=== PATIENT | female | born 1955 | race Caucasian/White ===

== ENCOUNTER 2018-03-16 13:36 | Emergency (ER) | payer BC, OTHER ==
[~2018-03-16] VITALS: Ht 160 cm; Wt 59.9 kg
[2018-03-16] MEDS ORDERED: ORPHENADRINE 60 MG/2 ML (NORFLEX) AMP IM ONE (15:15)
--- NOTE | 2018-03-16 15:22 | ED Lower Extremity ---
General Chief Complaint: Lower Extremity Stated Complaint: FELL,R LEG PAIN Nursing Triage Note: PT PRESENTS TO ER WITH COMPLAINT OF RIGHT LEG PAIN AFTER SLIPPING IN BATHROOM, STATES SHE DID THE SPLITS. STATES IT HURTS TO STRAIGHTEN HER RIGHT LEG. PAIN IN BACK UPPER THIGH. Nursing Sepsis Screen: No Definite Risk Source: patient Exam Limitations: no limitations History of Present Illness Date Seen by Provider: Mar 16, 2018 Time Seen by Provider: 15:17 Initial Comments Patient is a 62-year-old female who presents to the emergency room with complaints of right leg pain after slipping on a freshly mopped floor. She states that the slip caused her to do the splits coming down on her right hip and upper thigh. She states that over the course of her wait in the emergency room the pain has become much better and she denies any need for pain medication. She states that it just feels like she is having muscle spasms in the right upper thigh. Onset: just prior to arrival Pain/Injury Location: right hip Method of Injury: fell Modifying Factors: Worse With Movement; Improves With Rest Allergies and Home Medications Allergies Coded Allergies: sulfamethoxazole (Verified Allergy, Unknown, 03/16/18) trimethoprim (Verified Allergy, Unknown, 03/16/18) Home Medications Cyclobenzaprine HCl 10 Mg Tablet, 10 MG PO TID PRN for muscle spasms Prescribed by: ADITI RENTERIA on 03/16/18 1543 Patient Home Medication List Home Medication List Reviewed: Yes Constitutional: see HPI; No chills, No diaphoresis Gastrointestinal: abdominal pain Musculoskeletal: see HPI, joint pain (right hip), muscle cramps All Other Systems Reviewed Negative Unless Noted: Yes Past Qwrskal-Jgrkop-Nctvzj Hx Past Med/Social Hx: Reviewed Nursing Past Med/Soc Hx Patient Social History Alcohol Use: Denies Use Recreational Drug Use: No Smoking Status: Never a Smoker Recent Foreign Travel: No Contact w/Someone Who Travel: No Recent Infectious Disease Expo: No Recent Hopitalizations: No Immunizations Up To Date Tetanus Booster (TDap): Unknown PED Vaccines UTD: Yes Seasonal Allergies Seasonal Allergies: No Past Medical History Surgeries: Yes Breast, Hysterectomy Respiratory: No Cardiac: No Neurological: No Genitourinary: No Gastrointestinal: No Musculoskeletal: No Endocrine: No HEENT: No Cancer: No Psychosocial: No Integumentary: No Blood Disorders: No Family Medical History Reviewed Nursing Family Hx Physical Exam Vital Signs Vital Signs - First Documented 03/16/18 14:09 Pulse 88 Resp 20 B/P (MAP) 120/80 (93) Pulse Ox 100 O2 Delivery Room Air Capillary Refill : Less Than 3 Seconds Height, Weight, BMI Height: 5'3.00" Weight: 132lbs. oz. 59.971230rp; BMI Method:Stated General Appearance: WD/WN, no apparent distress Cardiovascular: regular rate, rhythm, no edema, no gallop, no JVD, no murmur Respiratory: chest non-tender, lungs clear, normal breath sounds, no respiratory distress, no accessory muscle use Hips: left hip non-tender, left hip normal inspection, left hip normal range of motion, left hip no evidence of injury; right hip pain, right hip soft tissue tenderness Legs: bilateral leg non-tender, bilateral leg normal inspection, bilateral leg normal range of motion, bilateral leg no evidence of injury Knees: bilateral knee non-tender, bilateral knee normal inspection, bilateral knee normal range of motion, bilateral knee no evidence of injury Ankles: bilateral ankle non-tender, bilateral ankle normal inspection, bilateral ankle normal range of motion, bilateral ankle no evidence of injury Feet: bilateral foot non-tender, bilateral foot normal inspection, bilateral foot normal range of motion, bilateral foot no evidence of injury Neurologic/Tendon: normal sensation, normal motor functions, normal tendon functions, responds to pain, no evidence tendon injury Neurologic/Psychiatric: alert, normal mood/affect, oriented x 3 Progress/Results/Core Measures Results/Orders My Orders Orders - ADITI RENTERIA Hip, Right, 2 Views (03/16/18 15:04) Orphenadrine Injection (Norflex Injectio (03/16/18 15:15) Medications Given in ED Vital Signs/I&O 03/16/18 03/16/18 14:09 16:17 Pulse 88 88 Resp 20 20 B/P (MAP) 120/80 (93) 120/80 (93) Pulse Ox 100 100 O2 Delivery Room Air Blood Pressure Mean: 93 Progress Progress Note : Progress Note I have seen and evaluated the patient.There is no obvious fractures noted on the imaging studies. By the end of the stay and after medication administration the patient was able to ambulate with minimal difficulty and pain. She agrees with close follow-up with her primary care physician, discharge plan and return precautions. Diagnostic Imaging Diagonstic Imaging: Xray Plain Films/CT/US/NM/MRI: hip Comments NAME: ABDIEL GREWAL [facility] REC#: [id number] PT STATUS: REG ER : 1955 PHYSICIAN: ADITI RENTERIA ADMIT DATE: 03/16/18/ER Signed Date of Exam: 03/16/18 HIP, RIGHT, 2 VIEWS INDICATION: Fall. COMPARISON: None. FINDINGS: Two views of the right hip are obtained. No acute fracture, malalignment or osseous destructive process is seen. Joint spaces preserved. Femoral head appears smooth and round. The sacroiliac joints appears unremarkable. IMPRESSION: No acute abnormalities demonstrated. Dictated by: Dictated on workstation # [id number] Dict: 03/16/18 1520 Trans: 03/16/18 1524 Interpreted by: EILEEN FERNÁNDEZ DO Electronically signed by: EILEEN FERNÁNDEZ DO 03/16/18 1524 Departure Impression Primary Impression: Strain of hip and thigh Disposition: 01 HOME, SELF-CARE Condition: Stable/Unchanged Departure-Patient Inst. Referrals: ROBERTH TOMLINSON DO (PCP/Family) Primary Care Physician Patient Instructions: Sprain (DC) Add. Discharge Instructions: Take medications as directed. Follow-up with your doctor within 1 week for recheck. Return back to the emergency room for any concerns as needed. All discharge instructions reviewed with patient and/or family. Voiced understanding. Scripts Cyclobenzaprine HCl (Cyclobenzaprine HCl) 10 Mg Tablet 10 MG PO TID PRN for muscle spasms, #10 TAB Prov: ADITI RENTERIA 03/16/18 ADITI RENTERIA Mar 16, 2018 15:22
[2018-03-16] MEDS ORDERED: CYCL10TA9 PO (15:43)
[2018-03-16 16:17] VITALS: BP 120/80
== END 2018-03-16 16:11 | disposition home or self-care (01) ==
LOC: ER 13:40
DX: S76.011A Strain of muscle, fascia and tendon of right hip, initial encounter (principal); S76.911A Strain of unspecified muscles, fascia and tendons at thigh level, right thigh, initial encounter; Z88.2 Allergy status to sulfonamides; Z88.8 Allergy status to other drugs, medicaments and biological substances; Z90.710 Acquired absence of both cervix and uterus; W01.0XXA Fall on same level from slipping, tripping and stumbling without subsequent striking against object, initial encounter; Y93.E5 Activity, floor mopping and cleaning
CPT/HCPCS: 73502; 96372